=== PATIENT | male | born 1990 | race Caucasian/White ===

== ENCOUNTER 2021-05-04 12:44 | Emergency (ER) | payer SELFPAY ==
[~2021-05-04] VITALS: Ht 167.6 cm; Wt 96.7 kg
[2021-05-04] MEDS ORDERED: TRAMADOL HCL 50 MG TAB PO STA (12:51)
[2021-05-04] MEDS ORDERED: ULTRAM50 MG PO (13:04)
[2021-05-04] MEDS ORDERED: TRAMADOL HCL 50 MG TAB ONE (13:08)
== END 2021-05-04 13:50 | disposition home or self-care (01) ==
LOC: FSED 12:50
DX: S62.397A Other fracture of fifth metacarpal bone, left hand, initial encounter for closed fracture (principal); W23.1XXA Caught, crushed, jammed, or pinched between stationary objects, initial encounter; Y92.008 Other place in unspecified non-institutional (private) residence as the place of occurrence of the external cause
CPT/HCPCS: 99283

== ENCOUNTER 2021-12-04 13:24 | Emergency (ER) | payer BC ==
[~2021-12-04] VITALS: Ht 167.6 cm; Wt 93.0 kg
[~2021-12-04 13:24] MED LIST: ULTRAM50 MG PO
== END 2021-12-04 16:05 | disposition home or self-care (01) ==
LOC: FSED 13:42
DX: M25.512 Pain in left shoulder (principal); X50.0XXA Overexertion from strenuous movement or load, initial encounter; F17.210 Nicotine dependence, cigarettes, uncomplicated
CPT/HCPCS: 99282